=== PATIENT | female | born 2000 | race Caucasian/White ===

== ENCOUNTER 2021-09-21 07:39 | Emergency (ER) | payer OTHER ==
[2021-09-21 07:42] VITALS: BP 124/84
== END 2021-09-22 00:10 | disposition left against medical advice (07) ==
LOC: ED 07:39
DX: S01.91XA Laceration without foreign body of unspecified part of head, initial encounter (principal); Z53.21 Procedure and treatment not carried out due to patient leaving prior to being seen by health care provider; X58.XXXA Exposure to other specified factors, initial encounter; Y93.89 Activity, other specified; Y92.89 Other specified places as the place of occurrence of the external cause; Y99.8 Other external cause status